=== PATIENT | male | born 1970 | race Caucasian/White ===

== ENCOUNTER 2017-01-10 15:14 | Outpatient (RCR) | payer OTHER ==
[~2017-01-10 15:14] MED LIST: CARAFATE 1GM1 G PO; CLINDAMYCIN HC150 MG PO; EC NAPROSYN500 MG PO; LEVAQUIN 750MG750 M1 PO; LORTAB 5/500 501 TAB PO; MOTRIN 800800 MG/TAB PO; NO HOME MEDICATIONS; NORCO 325 MG-51 TAB PO; PHENERGAN 25 TA25 MG PO; PROTONIX 40MG T40 MG PO; SERTRALINE; ULTRAM 50MG TAB50 MG PO; XANAX .25M0.25 MG/TA; ZOFRAN 4MG T4 MG/TAB PO; ZOFRAN ODT8 MG PO
== END 2017-02-02 15:09 ==
LOC: WSOH 15:14
DX: S61.411A Laceration without foreign body of right hand, initial encounter (principal); S60.221A Contusion of right hand, initial encounter; W20.8XXA Other cause of strike by thrown, projected or falling object, initial encounter; Y99.0 Civilian activity done for income or pay

== ENCOUNTER 2017-06-13 11:52 | Emergency (ER) | payer BC, OTHER ==
[~2017-06-13] VITALS: Ht 170.2 cm; Wt 68.2 kg
[~2017-06-13 11:52] MED LIST changes: +FLEXERIL 1010 MG/TAB PO
[2017-06-13 11:54] VITALS: BP 137/81
[2017-06-13 12:41] LABS: INFLUENZA A NEGATIVE; INFLUENZA B NEGATIVE
[2017-06-13 13:15] VITALS: PULSE 86; TEMP 98
== END 2017-06-13 13:14 | disposition home or self-care (01) ==
LOC: COL.ER 11:52
PROVIDERS: Physician Assistant
DX: B34.9 Viral infection, unspecified (principal); F17.210 Nicotine dependence, cigarettes, uncomplicated; Z87.11 Personal history of peptic ulcer disease

== ENCOUNTER 2017-11-06 10:56 | Emergency (ER) | payer BC, OTHER ==
[~2017-11-06] VITALS: Ht 170.2 cm; Wt 68.2 kg
[2017-11-06 11:12] VITALS: BP 133/79; TEMP 98.6
[2017-11-06] MEDS ORDERED: SEROQUEL50 MG PO (12:29)
[2017-11-06] MEDS ORDERED: PROTONIX 40MG T40 MG PO (12:30)
[2017-11-06] MEDS ORDERED: LEXAPRO 10MG10 MG PO (12:30)
[2017-11-06] MEDS ORDERED: ULTRAM 50MG TAB50 MG PO (13:41)
[2017-11-06 13:49] VITALS: PULSE 86
== END 2017-11-06 13:50 | disposition home or self-care (01) ==
LOC: COL.ER 10:56
DX: M23.91 Unspecified internal derangement of right knee (principal); K21.9 Gastro-esophageal reflux disease without esophagitis; F17.210 Nicotine dependence, cigarettes, uncomplicated; W10.9XXA Fall (on) (from) unspecified stairs and steps, initial encounter

== ENCOUNTER 2018-12-03 04:31 | Emergency (ER) | payer OTHER ==
[~2018-12-03] VITALS: Ht 172.7 cm; Wt 68.2 kg
[~2018-12-03 04:31] MED LIST changes: +LEXAPRO 10MG10 MG PO; +SEROQUEL50 MG PO
[2018-12-03 05:05] LABS: COLLECTION METHOD CLEAN CATCH
[2018-12-03 05:10] LABS: PH 6 (5-8); SQUAMOUS EPITHELIAL None Seen /hpf; URINE APPEARANCE Clear; URINE BACTERIA None Seen /hpf; URINE BILIRUBIN Negative (NEGATIVE); URINE BLOOD Negative (NEGATIVE); URINE COLOR Straw; URINE GLUCOSE Negative (NEGATIVE); URINE KETONE Negative (NEGATIVE); URINE LEUKOCYTE ESTERASE Negative (NEGATIVE); URINE NITRATE Negative (NEGATIVE); URINE PROTEIN(semi-quant) Negative (NEGATIVE); URINE RBC None Seen /hpf; URINE UROBILINOGEN Negative (NEGATIVE)
[2018-12-03 05:38] LABS: BASO # 0.1 (0.0-0.2); BASO % 0.6 % (0.0-2.0); EOS # 0.5 (0.0-0.7); EOS % 6.4 % (0-4.0); GRAN # 3.6 (1.4-6.5); GRAN % 44.4 % (42.2-75.2); HEMATOCRIT 41.6 % (42.0-52.0); HEMOGLOBIN 14.8 g/dl (13.5-18.0); LYMPH # 3.4 (1.2-3.4); MEAN CELL VOLUME 93 fl (80.0-100.0); MEAN CORPUSCULAR HEMOGLOBIN 33 pg (27.0-31.0); MEAN CORPUSCULAR HGB CONC 36 g/dl (33.0-37.0); MEAN PLATELET VOLUME 9.8 fl (7.4-10.4); MONO # 0.6 (0.1-0.6); MONO % 7.5 % (1.7-9.3); PLATELET COUNT 228 K/mm3 (130-400); RED BLOOD COUNT 4.49 M/mm3 (4.20-5.60); REDCELL DISTRIBUTION WIDTH-CV 13.4 % (11.5-14.5)
[2018-12-03 05:44] LABS: TRICYCLIC ANTIDEPRESS URINE NEGATIVE
[2018-12-03 05:47] LABS: ALANINE AMINOTRANSFERASE 12 U/L (21-72); ALBUMIN 4.2 gm/dL (3.5-5.0); ALCOHOL(ethanol),MEDICAL 108 mg/dL; ALKALINE PHOSPHATASE 92 U/L (50-136); ANION GAP 13 mmol/L (7-16); AST,SGOT 28 U/L (15-37); BILIRUBIN,TOTAL 0.3 mg/dL (0.0-1.0); BLOOD UREA NITROGEN 11 mg/dL (9-20); CALCIUM 8.8 mg/dL (8.4-10.2); CARBON DIOXIDE 19 mmol/L (22-30); CHLORIDE 106 mmol/L (98-107); GLUCOSE 85 mg/dL (74-106); PHOSPHOROUS 3.7 mg/dL (2.5-4.5); SODIUM 139 mmol/L (137-145); TOTAL PROTEIN 7.5 gm/dL (6.4-8.2)
[2018-12-03 06:04] LABS: TROPONIN-I < 0.012 ng/mL (0.000-0.035)
[2018-12-03] MEDS ORDERED: NORCO 325 MG-51 TAB PO (09:03)
[2018-12-03] MEDS ORDERED: NAPROXEN 3375 MG/TAB PO (09:03)
[2018-12-03 09:15] VITALS: BP 116/76; PULSE 108; TEMP 99.1
== END 2018-12-03 09:15 | disposition home or self-care (01) ==
LOC: COL.ER 04:31
PROVIDERS: Emergency Medicine
DX: M25.511 Pain in right shoulder (principal); F43.10 Post-traumatic stress disorder, unspecified; F41.9 Anxiety disorder, unspecified; F17.210 Nicotine dependence, cigarettes, uncomplicated
CPT/HCPCS: J1170; J1885; J2060; J3411; J7030

== ENCOUNTER → 2020-01-17 | Outpatient (CLI) | payer OTHER ==
[~2020-01-17] MED LIST changes: +NAPROXEN 3375 MG/TAB PO
== END ==
LOC: ZCOL.LAB 15:49
DX: Z20.828 Contact with and (suspected) exposure to other viral communicable diseases (principal)